=== PATIENT | female | born 1950 | race Caucasian/White ===

== ENCOUNTER 2017-06-02 16:38 | Emergency (ER) | payer OTHER ==
[~2017-06-02] VITALS: Ht 154.9 cm; Wt 43.4 kg
[~2017-06-02 16:38] MED LIST: PRED1SUS3 OPL
[2017-06-02 16:42] VITALS: TEMP 37; Ht 154.9 cm; Wt 43.4 kg
[2017-06-02] MEDS ORDERED: KETOROLAC TROMETHAMINE 60 MG/2 ML VIAL IM STA (17:00)
[2017-06-02] MEDS ORDERED: DIAZEPAM 5MG TAB PO STA (17:00)
--- NOTE | 2017-06-02 17:27 | EMERGENCY ROOM VISIT NOTE ---
ED Visit Note First contact with patient: 16:46 CHIEF COMPLAINT: Low back pain HISTORY OF PRESENT ILLNESS: This 67-year-old female patient presents to the emergency department by private vehicle with her complaining of pain in the low back which began approximately 1 month ago. Patient denies any known significant injury, though she believes her pain started after lifting a 25 lb. child. The pain was gradual in onset, is now constant and worse with movement and prolonged periods on her feet, better with rest. She states the pain feels like a squeezing or spasming at times becomes quite severe. The patient notes the pain as constant dull ache and a 5/10. The patient has taken Aleve and Tylenol with some relief of the pain. The patient denies any loss of control of their bowel or bladder functions. There has been no leg numbness or weakness , and no change in sensation. No nausea or vomiting or abdominal pain. No chest pain or shortness of breath. The patient has not had prior back injuries surgeries. No dysuria or increased urinary frequency. No rash. REVIEW OF SYSTEMS: A complete 10 point review of systems was reviewed with the patient with pertinent positives and negatives as per history of present illness. All else were negative. ALLERGIES: No known allergies MEDICATIONS: No medications PMH: Cataract surgery. No other significant past medical or surgical history. SOCIAL HISTORY: Lives at home with . Denies tobacco, alcohol or recreational drug use. PHYSICAL EXAM: VITALS: Vitals are noted on the nurse's note and reviewed by myself. Vital signs stable. GENERAL: Pleasant and cooperative, in no acute distress, non-diaphoretic, well- developed well-nourished. SKIN: The skin was without rashes, erythema, edema, or bruising. Capillary refill less than 2 seconds. NECK: Supple without nuchal rigidity. No cervical spine tenderness. No paraspinous muscle tenderness. HEART: Regular rate and rhythm without murmurs gallops or rubs. Normal peripheral perfusion. No edema. LUNGS: Clear to auscultation bilaterally without wheezes, rales or rhonchi. ABDOMEN: Positive bowel sounds x 4. Normal tympanic percussion. Soft, nontender, without masses or organomegaly. Snell sign negative. MUSCULOSKELETAL: No muscle atrophy, erythema, or edema noted of the back. There is no tenderness over the lumbar spinous processes. There is moderate tenderness over the lumbar paraspinous muscles on the right. There is no tenderness over the thoracic spine or paraspinous muscles. There are mild muscle spasms present. The patient is slow to move around with maximum tenderness with bending at the waist. Negative straight leg raise test bilaterally. NEURO: Patient was alert and oriented to person place and time. Normal sensation to light and sharp touch. Deep tendon reflexes 2+ in the lower extremities. Dorsalis pedis pulse 2+ bilaterally. Strength 5/5 and equal in the bilateral lower extremities. IMAGING: LUMBAR SPINE 5 VIEWS CLINICAL HISTORY: Low back pain. FINDINGS: 5 views of the lumbar spine are obtained. No prior studies are available for comparison at the time of dictation. The skeletal structures are osteopenic. There is no radiographic evidence of fracture or malalignment. Vertebral body height and alignment are maintained. The transverse and spinous processes are intact. There is no evidence of spondylolysis. Mild disc space narrowing is seen at L5-S1. The remaining intervertebral disc spaces are well-maintained. The visualized bony pelvis appears intact. There is a nonobstructed abdominal bowel gas pattern. IMPRESSION: No acute bony abnormality is seen involving the lumbosacral spine. EMERGENCY DEPARTMENT COURSE: Medication Reconciliation: I attest that I have personally reviewed the patient' s current medication list. INITIAL VITAL SIGNS REVIEW: I reviewed the patient's initial vital signs and interpret them as follows: T: Afebrile; BP: Hypertensive; HR: Within normal; RR: Within normal; Pulse Ox: This within normal limits on room air. Blood pressure screening: The patient was found to have an elevated blood pressure and was referred to their primary doctor for recheck and further treatment. I examined the patient. Differential diagnosis includes musculoskeletal pain, low back sprain/strain, lumbar radiculopathy, sciatica, degenerative disc disease, herniated disc, lumbar fracture or subluxation, cauda equina, among others. Patient does not have any midline tenderness of the lower back. There is paraspinous muscle tenderness with spasm noted. No radicular symptoms. No red flags on exam or history concerning for spinal cord involvement. Patient was treated with IM Toradol and oral Valium, she reports good improvement in her back pain. Discussed with patient and her risks versus benefits of performing imaging of the lumbar spine. Given her lack of significant injury and relatively normal exam, I feel an x-ray will most likely be low yield. However as her symptoms have been ongoing for more than a month, patient would like to have an x-ray of the lumbar spine performed, and I feel this is reasonable. L-spine imaging shows mild disc space narrowing at L5-S1, no acute abnormalities. Patient reports improved back pain after treatment, she was updated on x-ray imaging results, and plan for discharge. She was encouraged to follow-up with her primary care provider and to seek physical therapy for ongoing management of her back pain. She was also encouraged to follow-up with her primary care provider regarding her significant hypertension, although this does appear to be improved upon recheck. She was also given strict return precautions her symptoms worsen, she verbalized understanding. The patient was discharged home with her in stable condition and ambulatory. Patient was discussed with Dr. Bowling, who also examined the patient independently and agrees with my assessment and disposition. Current/Historical Medications Scheduled Diazepam (Valium), 5 MG PO QID Prednisolone Acetate 1% Oph (Pred Forte 1% Oph), 1 DROP OPL DAILY Allergies Coded Allergies: No Known Allergies (Unverified , 12/07/15) Vital Signs Date Time Temp Pulse Resp B/P (MAP) Pulse Ox O2 Delivery O2 Flow Rate FiO2 06/02/17 18:29 72 18 119/71 97 06/02/17 16:42 37.0 89 18 193/93 97 Room Air Medications Administered Medications (Trade) Dose Ordered Sig/Main Route Start Time Stop Time Status Last Admin Dose Admin Diazepam (Valium Tab) 5 mg NOW STAT PO 06/02/17 17:00 06/02/17 17:03 DC 06/02/17 17:14 5 MG Ketorolac Tromethamine (Toradol Inj) 60 mg NOW STAT IM 06/02/17 17:00 06/02/17 17:03 DC 06/02/17 17:14 60 MG Departure Information Impression Primary Impression: Strain of lumbar region Dispostion Home / Self-Care Condition GOOD Prescriptions Diazepam (Valium) 5 Mg Tab 5 MG PO QID for 3 Days, #12 TAB Prov: Denia Georges, [employer] 06/02/17 Referrals Gerardo Yeung M.D. (PCP) Patient Instructions ED Back Care Tips, ED Exercises Lumbar Muscles, ED Sprain Strain Lumbar, My [facility] Additional Instructions Take it easy for the next few days, no strenuous activity, heavy lifting, or bending/twisting motions, to allow your back to rest. Alternate heat and ice for comfort. After heat, you may do gentle stretching and massage to the low back. For pain control, you can use the following [id number] medicines (if >12 yo): - Regular strength (325mg/tab) Tylenol (acetaminophen) 2 tabs every 4-6 hours as needed. Do not exceed 10 tablets in a 24 hour period. Avoid taking more than 3000 mg of Tylenol per day. This includes any other sources of acetaminophen you may take on a regular basis. - Regular strength (200 mg/tab) Advil (ibuprofen) 3 tabs every 6-8 6 hours as needed. Do not exceed a dose of 2400 mg per day. Take the Valium muscle relaxer as prescribed, 1 tablet every 6 hours as needed for muscle tightness and spasms. This may make you drowsy. Do not drive or drink alcohol while taking. Follow up with your PCP in the next few days for further management. You may benefit from physical therapy. Please return to the ER if any problems with bowel or bladder function, numbness in your groin, high fevers, severe abdominal pain or worsening back pain, or if loss of feeling/movement of legs. Problem Qualifiers Primary Impression: Strain of lumbar region Encounter type: initial encounter Qualified Codes: S39.012A - Strain of muscle, fascia and tendon of lower back, initial encounter
--- NOTE | 2017-06-02 17:29 | EMERGENCY ROOM VISIT NOTE ---
ED Visit Note First contact with patient: 16:46 I have personally seen and evaluated the patient with the physician web production assistant/ [employer]. I agree with the diagnostic/management decisions and have personally been involved in these decisions and agree with the diagnosis.
--- NOTE | 2017-06-02 17:52 | DIAGNOSTIC IMAGING REPORT ---
LUMBAR SPINE 5 VIEWS CLINICAL HISTORY: Low back pain. FINDINGS: 5 views of the lumbar spine are obtained. No prior studies are available for comparison at the time of dictation. The skeletal structures are osteopenic. There is no radiographic evidence of fracture or malalignment. Vertebral body height and alignment are maintained. The transverse and spinous processes are intact. There is no evidence of spondylolysis. Mild disc space narrowing is seen at L5-S1. The remaining intervertebral disc spaces are well-maintained. The visualized bony pelvis appears intact. There is a nonobstructed abdominal bowel gas pattern. IMPRESSION: No acute bony abnormality is seen involving the lumbosacral spine. Electronically signed by: Real Spear M.D. 06/02/2017 5:51 PM Dictated Date/Time: 06/02/2017 5:50 PM
[2017-06-02] MEDS ORDERED: DIAZ-165 PO (18:11)
[2017-06-02 18:29] VITALS: BP 119/71; PULSE 72; O2SAT 97
== END 2017-06-02 18:33 | disposition home or self-care (01) ==
LOC: C.EDB 16:40 → C.EDD 18:33
DX: S39.012A Strain of muscle, fascia and tendon of lower back, initial encounter (principal); X50.0XXA Overexertion from strenuous movement or load, initial encounter